=== PATIENT | female | born 1955 | race Two or more races ===

== ENCOUNTER 2025-05-12 21:41 | Emergency (ER) | payer OTHER ==
[~2025-05-12] VITALS: Ht 149.9 cm; Wt 86.2 kg
[2025-05-12] MEDS ORDERED: FAMOtidine 10 MG/ML (4ML VIAL) IV ONE (22:00)
[2025-05-12] MEDS ORDERED: ONDANSETRON HCL 2 MG/ML VIAL IV ONE (22:00)
[2025-05-12] MEDS ORDERED: KETOROLAC TROMETHAMINE 30 MG VIAL IV ONE (22:00)
[2025-05-12] MEDS ORDERED: 0.9 % SODIUM CHLORIDE 1,000 ML IV ONE (22:00)
[2025-05-12 23:32] LABS: BASO % 0.2 % (0.1-1.2); EOS # 0.05 (0.04-0.54); EOS % 0.5 % (0.7-7.0); LYMPH # 1.75 (1.18-3.74); LYMPH % 19.2 % (19.3-53.1); MEAN PLATELET VOLUME 10.10 fl (9.4-12.4); MONO # 0.49 (0.24-0.82); MONO % 5.4 % (4.7-12.5); NEUT # 6.75 (1.56-6.13); NEUT % 74.3 % (34.0-71.1); RED CELL DISTRIBUTION WIDTH 12.3 % (11.6-14.4)
[2025-05-12 23:45] LABS: INR 1.05
[2025-05-12 23:49] LABS: ALT/SGPT 33.0 U/L (12-78); AST/SGOT 29.0 U/L (15-37); BILIRUBIN TOTAL 0.28 mg/dL (0.3-1.2); BUN CREA RATIO 24.0 (7.0-25.0); CREATININE SERUM 0.95 mg/dL (0.55-1.02); GFR 58.15; GLOBULINA 3.6 G/DL (2.4-3.5); GLUCOSE FASTING 172.0 mg/dL (65-100); OSMOLALITY SERUM 289.0 MOSM/KG (275-295)
[2025-05-13 00:22] LABS: URINE APPEARANCE Clear; URINE BILIRRUBIN Negative (NEGATIVE); URINE BLOOD Negative; URINE COLOR Yellow; URINE GLUCOSE Negative (NEGATIVE); URINE KETONE Negative (NEGATIVE); URINE LEUKOCYTE Large; URINE NITRATE Negative; URINE PROTEIN Negative (NEGATIVE); URINE UROBILINOGEN 0.2 E.U./dl
[2025-05-13 00:31] LABS: COVID-19 AG NEGATIVE (NEGATIVE)
[2025-05-13 00:49] LABS: URINE RBC 0-3 /HPF
[2025-05-13 00:50] LABS: URINE EPITHELIAL CELLS 0-4 /HPF; URINE WBC 41-50 /hpf
[2025-05-13 00:52] LABS: URINE BACTERIA MANY
== END 2025-05-13 03:46 | disposition home or self-care (01) ==
LOC: ER 21:41
PROVIDERS: General Practice
DX: K30 Functional dyspepsia (principal); K52.89 Other specified noninfective gastroenteritis and colitis; Z91.013 Allergy to seafood; R11.2 Nausea with vomiting, unspecified; I10 Essential (primary) hypertension; R14.3 Flatulence; R14.1 Gas pain; Z20.822 Contact with and (suspected) exposure to COVID-19; D25.9 Leiomyoma of uterus, unspecified